=== PATIENT | female | born 1935 | race Caucasian/White ===

== ENCOUNTER 2021-04-25 21:08 | Emergency (ER) | payer MEDICARE, BC ==
[~2021-04-25] VITALS: Ht 160 cm; Wt 57.0 kg
[~2021-04-25 21:08] MED LIST: APIX5TAB3 PO; ASPI81TA52 PO; CARV6.253 PO; FAMO20TA47 PO; LEVO75TA7 PO; MOMETASONE 0.1% TOP; PRAV20TA4 PO; TRIA1TAB5 PO
[2021-04-25 22:28] LABS: BASOPHILS # (AUTO) 0.1 X10'3 (0-0.2); BASOPHILS % (AUTO) 0.9 % (0-1); EOSINOPHILS % (AUTO) 0.4 % (0-6); HEMATOCRIT 40.8 % (35.0-45.0); HEMOGLOBIN 13.7 g/dl (12.0-16.0); LYMPHOCYTES % (AUTO) 13.2 % (21-51); MEAN CORPUSCULAR HEMOGLOBIN 29.2 PG (27.0-31.0); MEAN CORPUSCULAR HGB CONC 33.5 g/dL (33.0-36.5); MEAN CORPUSCULAR VOLUME 87.3 FL (78-98); MEAN PLATELET VOLUME 9.8 FL (7.4-10.4); MONOCYTES # (AUTO) 0.6 X10'3 (0-0.9); NEUTROPHILS # (AUTO) 6.2 X10'3 (1.8-7.7); NEUTROPHILS % (AUTO) 78.5 % (42-75); PLATELET COUNT 202 X10'3 (140-440); RED BLOOD COUNT 4.67 X10'6 (4.20-5.60); RED CELL DISTRIBUTION WIDTH 13.8 % (11.5-14.5); WHITE BLOOD COUNT 7.9 X10'3 (4.5-11.0)
[2021-04-25 22:43] LABS: ALANINE AMINOTRANSFERASE 27 U/L (12-78); ALBUMIN 3.1 G/DL (3.4-5.0); ALBUMIN/GLOBULIN RATIO 0.7 (1.1-1.5); ALKALINE PHOSPHATASE 60 IU/L (46-116); ANION GAP 12 (8-16); ASPARTATE AMINO TRANSFERASE 33 U/L (10-37); BILIRUBIN,TOTAL 1.3 MG/DL (0.1-1.0); BLOOD UREA NITROGEN 11 MG/DL (7-18); BUN/CREATININE RATIO 14.1 (6.6-38.0); CALCIUM 8.6 MG/DL (8.5-10.1); CHLORIDE 96 MMOL/L (99-107); CREATININE 0.78 MG/DL (0.40-0.90); GLUCOSE 135 MG/DL (70-104); MAGNESIUM 2.1 MG/DL (1.5-2.4); POTASSIUM 3.4 MMOL/L (3.5-5.1); SODIUM 134 MMOL/L (135-145); TOTAL CARBON DIOXIDE 26.2 MMOL/L (24-32); TOTAL PROTEIN 7.4 G/DL (6.4-8.2); eGFR 70 ML/MIN
[2021-04-25] MEDS ORDERED: dexamethasone sod phosphate 10mg/ml inj IV STA (23:11)
[2021-04-25 23:16] LABS: D-DIMER 0.36 MG/L FEU (0-0.50)
[2021-04-25 23:32] LABS: C-REACTIVE PROTEIN 8.82 MG/DL (0.0-0.5)
[2021-04-26] MEDS ORDERED: potassium Cl 40MEQ/1/2NS 520ml 520 ML IV PRN ×2 (01:35)
[2021-04-26] MEDS ORDERED: mag hydrox/Alum hydrox/simeth 30ml oral suspension PO PRN (01:35)
[2021-04-26] MEDS ORDERED: magnesium hydroxide 30ml (MOM) UD suspension PO PRN (01:35)
[2021-04-26] MEDS ORDERED: ondansetron/PF 4mg/2ml inj IV PRN (01:35)
[2021-04-26] MEDS ORDERED: potassium Cl 20 mEq SR tablet PO PRN ×2 (01:35)
[2021-04-26] MEDS ORDERED: acetaminophen 325mg tablet PO PRN (01:35)
[2021-04-26] MEDS ORDERED: dextrose ORAL solution 15 GM/59 ML bottle PO PRN ×2 (01:50)
[2021-04-26] MEDS ORDERED: MESSAGE TO PHARMACY PO ONE (01:50)
[2021-04-26] MEDS ORDERED: dextrose 50%-water 50ml dispensing syringe IV PRN ×2 (01:50)
[2021-04-26] MEDS ORDERED: glucagon, human recombinant 1mg kit SUBCUT PRN (01:50)
[2021-04-26 02:06] LABS: HEMOGLOBIN A1C 6.7 % (4.5-6.2)
[2021-04-26] MEDS: dexamethasone 4mg/ml inj IV SCH ×4 (03:44→21:58)
[2021-04-26] MEDS ORDERED: apixaban 5mg tablet PO SCH (08:00)
[2021-04-26] MEDS: K and/or MAG REPLACEMENT MC SCH ×2 (08:00→22:03)
[2021-04-26] MEDS: docusate sod 100mg capsule PO SCH ×2 (08:34→21:59)
[2021-04-26] MEDS: atorvastatin 10mg tablet PO SCH (08:34)
[2021-04-26] MEDS: levoTHYROXINE 75mcg tablet PO SCH (08:34)
[2021-04-26] MEDS: carvedilol 6.25mg tablet PO SCH ×2 (08:34→21:59)
[2021-04-26] MEDS: triamterene/HCTZ 37.5/25mg tablet PO SCH (08:35)
--- NOTE | 2021-04-26 09:01 | NUR ---
PT'S POTASSIUM IS 3.4. DID NOT REPLACE POTASSIUM IN THE AM. PT WAS GIVEN MAXZIDE, ORDERED, WHICH MAY ELEVATE POTASSIUM.
[2021-04-26] MEDS ORDERED: METF-436 PO (13:26)
[2021-04-26] MEDS ORDERED: MOME45CR3 TOP (13:26)
[2021-04-26] MEDS ORDERED: APIX5TAB3 PO (13:26)
--- NOTE | 2021-04-26 13:38 | NUR ---
CALLED DIETARY TWICE PT HAS NOT RECIEVED LUNCH TRAY YET. NO ONE PICKED UP THE PHONE. WILL ATTEMPT CALLING LATER.
--- NOTE | 2021-04-26 15:40 | NUR ---
Lunch has now been delivered. glucose has been checked.
[2021-04-26] MEDS: insulin Lispro (HumaLOG) vial - multi-dose SQ SCH (16:48)
[2021-04-26 19:11] LABS: CLARITY,URINE CLEAR (Clear); COLOR,URINE YELLOW (Yellow); GLUCOSE, URINE NEGATIVE (Neg); KETONES,URINE TRACE mg/dl (Neg); LEUKOCYTE ESTERASE ,URINE NEGATIVE (Neg); NITRITES, URINE NEGATIVE (Neg); OCCULT BLOOD,URINE NEGATIVE (Neg); PROTEIN,URINE NEGATIVE (Neg); UROBILINOGEN,URINE 0.2 E.U/dL (0.2-1.0)
[2021-04-26 19:14] LABS: UA COLLECTION TYPE CLN CATCH MIDSTREAM
[2021-04-26] MEDS: apixaban 5mg tablet PO SCH (21:59)
[2021-04-27 02:12] LABS: BASOPHILS # (AUTO) 0.1 X10'3 (0-0.2); BASOPHILS % (AUTO) 0.7 % (0-1); EOSINOPHILS % (AUTO) 0 % (0-6); HEMATOCRIT 39.4 % (35.0-45.0); HEMOGLOBIN 12.9 g/dl (12.0-16.0); LYMPHOCYTES % (AUTO) 12.3 % (21-51); MEAN CORPUSCULAR HEMOGLOBIN 28.6 PG (27.0-31.0); MEAN CORPUSCULAR HGB CONC 32.9 g/dL (33.0-36.5); MEAN CORPUSCULAR VOLUME 87.1 FL (78-98); MEAN PLATELET VOLUME 9.7 FL (7.4-10.4); MONOCYTES # (AUTO) 0.6 X10'3 (0-0.9); MONOCYTES % (AUTO) 7.2 % (2-12); NEUTROPHILS # (AUTO) 6.5 X10'3 (1.8-7.7); NEUTROPHILS % (AUTO) 79.8 % (42-75); PLATELET COUNT 233 X10'3 (140-440); RED BLOOD COUNT 4.52 X10'6 (4.20-5.60); RED CELL DISTRIBUTION WIDTH 13.9 % (11.5-14.5); WHITE BLOOD COUNT 8.1 X10'3 (4.5-11.0)
[2021-04-27 02:33] LABS: ALANINE AMINOTRANSFERASE 27 U/L (12-78); ALBUMIN 2.8 G/DL (3.4-5.0); ALBUMIN/GLOBULIN RATIO 0.7 (1.1-1.5); ALKALINE PHOSPHATASE 53 IU/L (46-116); ANION GAP 11 (8-16); ASPARTATE AMINO TRANSFERASE 23 U/L (10-37); BILIRUBIN,TOTAL 0.9 MG/DL (0.1-1.0); BLOOD UREA NITROGEN 21 MG/DL (7-18); BUN/CREATININE RATIO 23.3 (6.6-38.0); CALCIUM 8.7 MG/DL (8.5-10.1); CHLORIDE 101 MMOL/L (99-107); GLUCOSE 181 MG/DL (70-104); POTASSIUM 3.6 MMOL/L (3.5-5.1); SODIUM 140 MMOL/L (135-145); TOTAL CARBON DIOXIDE 27.7 MMOL/L (24-32); TOTAL PROTEIN 6.9 G/DL (6.4-8.2); eGFR 60 ML/MIN
[2021-04-27] MEDS: dexamethasone 4mg/ml inj IV SCH ×3 (03:36→16:18)
[2021-04-27] MEDS: apixaban 5mg tablet PO SCH (07:51)
[2021-04-27] MEDS: carvedilol 6.25mg tablet PO SCH (07:52)
[2021-04-27] MEDS: atorvastatin 10mg tablet PO SCH (07:52)
[2021-04-27] MEDS: docusate sod 100mg capsule PO SCH (07:53)
[2021-04-27] MEDS: levoTHYROXINE 75mcg tablet PO SCH (07:53)
[2021-04-27] MEDS: triamterene/HCTZ 37.5/25mg tablet PO SCH (07:57)
[2021-04-27] MEDS: K and/or MAG REPLACEMENT MC SCH (07:58)
[2021-04-27] MEDS ORDERED: DEXA6TAB PO (11:48)
[2021-04-27] MEDS: insulin Lispro (HumaLOG) vial - multi-dose SQ SCH (11:55)
[2021-04-27] MEDS ORDERED: POTA-197 PO (16:37)
[2021-04-27 17:41] VITALS: BP 132/58
--- NOTE | 2021-04-28 11:02 | NUR ---
Patients family called ER stating that when patient was discharged yesterday she did not have a prescription given or called in prescription to [facility]. I called in prescription for dexamethasone and potassium chloride per Dr. villalpando discharge orders to [facility] per patient request.
== END 2021-04-27 17:44 | disposition home or self-care (01) ==
LOC: ER 21:09 → ED HOLD 04-26 01:35 → UNDOADMIN 04-26 01:35 → ED HOLD 04-26 14:45 → UNDODISIN 04-27 16:00 → ER 04-27 17:44
DX: U07.1 COVID-19 (principal); J12.82 Pneumonia due to coronavirus disease 2019; R09.02 Hypoxemia
CPT/HCPCS: 36415; 71045; 80053; 81003; 82728; 82948; 83036; 83605; 83615; 83735; 84145; 85025; 85379; 85384; 86140; 87040; 87635; 93005; 96374; 96375; 96376; 99285; C9803; J1100; J1815; 96372; G0378